=== PATIENT | female | born 1970 | race Caucasian/White ===

== ENCOUNTER 2020-04-29 16:50 | Emergency (ER) | payer MEDICARE, MEDICAID, SELFPAY ==
[2020-04-29] VITALS (54 sets, daily range): BP systolic 97–138; BP diastolic 42–103; PULSE 52–187; RESP 11–37; TEMP 36.6; O2SAT 85–96
--- NOTE | 2020-04-29 16:45 | RT.EKG_ITS ---
APPROVED REPORT Exam: Resting ECG Patient Location: E HR:96 bpm ECG Measurements Heart Rate [address] 209 P 51 QRSd 99 QRS 89 QT 353 T 32 QTc 448 Conclusion Sinus rhythm...normal P axis, V-rate 60- [address] interval...CT >205, V-rate 91-120 Low voltage, extremity leads...all extremity leads <0.5mV
--- NOTE | 2020-04-29 17:18 | DI.CT_ITS ---
EXAM: CT CHEST PE ABD PELVIS W CLINICAL HISTORY: upper abdominal pain, shortness of breath. TECHNIQUE: Imaging Protocol: Axial CT angiography was performed with multi-slice acquisition and m ulti-planar and/or 3D reconstructions. CONTRAST MATERIAL: Intravenous: Omnipaque 350 Contrast volume:100 ml Oral: None COMPARISON: None FINDINGS: CHEST: PULMONARY ARTERIES: There are no intra-arterial filling defects to suggest the presence of acute pulm onary emboli. LUNGS: There is no evidence of pulmonary infarction. Emphysematous changes and mosaic pattern in the lung jacobs. Also atelectasis and mild infiltrates in lung bases. No pleural effusions. MEDIASTINUM: There is no hilar nor mediastinal adenopathy. CARDIAC: There is cardiomegaly. No pericardial effusion. No significant shift of the interventricul ar septum. However, there is some reflux of contrast into the intrahepatic veins evident. Thecalibe r of the thoracic aorta is within normal limits. OSSEOUS: No significant osseous lesions.. ABDOMEN: There is no ascites. LIVER: There are no focal hepatic lesions. GALLBLADDER/BILIARY: Gallbladder surgically absent. CBD diameter is upper normal. Mild prominence o f intrahepatic ducts noted in both attic lobes. PANCREAS: No evidence of pancreatic mass nor dilatation of the pancreatic duct. SPLEEN: Spleen is not enlarged. There are no intrasplenic lesions. Splenic and portal veins are esqueda nt. ADRENALS: There is a 10 x 12 millimeter nodule in the left adrenal gland. A 6 x 6 millimeter nodule is noted in the right adrenal gland KIDNEYS:Right kidney appears unremarkable. There is a nonobstructive calculus in the left kidney whi ch measures approximately 10 x 11 millimeters.. No solid renal masses. ABDOMINAL AORTA: The abdominal aorta is not enlarged. There are multiple small subcentimeter low lym ph nodes in the para-aortic region. ABDOMINAL WALL/GI: Prominent pannus. There is also midline ventral anterior abdominal wall hernia wh ich contains fat and measures 5 cm wide. No bowel obstruction. PELVIS: LYMPH NODES: There are enlarged lymph nodes in both groins, exhibiting fatty hemal. GI: No evidence of appendicitis.No evidence of sigmoid diverticulitis. URINARY BLADDER: There is air seen in the urinary bladder. REPRODUCTIVE: Uterus size is age-appropriate. Ovaries appear symmetrical. There prominent fatty lym ph nodes bilaterally anterior to the iliac arteries in the pelvis. OSSEOUS: No significant osseous lesions. IMPRESSION: 1. No evidence of acute pulmonary emboli nor pulmonary infarction. 2. Cardiomegaly and indirect evidence of right heart insufficiency.No pericardial effusion. 3. Abnormally enlarged inguinal and iliac lymph nodes as well as small retroperitoneal lymphadenopath y. 4. Bilateral adrenal adenomas, larger on the left side (12 millimeters) 5. There is a 10-11 millimeter nonobstructing calculus in left kidney. No other significant renal fi ndings. 6. There is an anterior abdominal wall hernia as described above which contains fat and no bowel loo ps. There is no bowel obstruction. RADIATION DOSE DELIVERED: 2,215.55mGy.cm Total DLP DATA REPOSITORY: All CT scans at this facility are submitted to the National Radiology Data Registry (NRDR) Dose Index Registry (DIR) with the [employer] (A[employer]). RADIATION OPTIMIZATION: All CT scans at this facility use at least one of these dose optimization te chniques: automated exposure control; mA and/or kV adjustment per patient size (includes targeted exa ms where dose is matched to clinical indication); or iterative reconstruction.
--- NOTE | 2020-04-29 17:22 | ED.GENADUL_ITS ---
Discharge Plan Disposition Patient Disposition: [facility] Condition: Serious Discharge Details Clinical Impression: CHF (congestive heart failure), Abdominal pain, Nonsustained paroxysmal supraventricular tachycardia Primary Care Provider: Barbara Irving ED Provider: Flex Rush Home Meds and New Rx's Prescriptions: No Action diltiazem HCl 360 mg Capsule,Extended Release 24hr 360 mg PO DAILY RF: 0 furosemide [Lasix] 80 mg Tablet 80 mg PO DAILY RF: 0 metformin 1,000 mg Tablet 1,000 mg PO BID RF: 0 glimepiride 4 mg Tablet 4 mg PO DAILY RF: 0 gabapentin 600 mg Tablet 1,200 mg PO TID RF: 0 spironolactone 25 mg Tablet 12.5 mg PO DAILY RF: 0 Discharge Data Discharge Date/Time-TO BE ENTERED AT DEPARTURE: 04/30/20 00:30 Medical Decision Making 1727??49-year-old female with history of CHF, prior abdominal hernia, here with severe upper abdominal bandlike pain over the past month and worse over the past 1 week with associated shortness of breath. Patient also with lower extremity edema. Some medication noncompliance. EMS notes patient had intermittent episodes of SVT with RVR 180 bpm in route to emergency department. She was given diltiazem 15 mg IV prior to arrival. Concern for exacerbation of congestive heart failure. Will check BNP. ECG and troponin. Consider acute pulmonary embolism. Plan to obtain CT of the chest. Consider acute intra-abdominal surgical process. Will obtain CT of the abdomen pelvis. Patient obtain outside hospital records from [facility] where patient receives usual care. Patient has severe pain is requesting Dilaudid noting side effects from tramadol and lack of improvement with NSAIDs. Will give dialudid 1mg IV. --Screening ECG was reviewed and interpreted by me: Please see report, sinus rhythm, no STEMI. 1759 --I obtained outside hospital records from [facility] and reviewed them. Prior medical history includes diabetes type 2, COPD, history of hernia repair, depression. Cardiology note notes Zio patch report 10/29/2019 paroxysmal SVT, symptomatic. Echocardiogram 10/06/2018 note EF 50 to 60% with normal wall motion of the left ventricle, right ventricle was dilated and systolic function reduced. Pulmonary artery systolic pressure was noted to be increased greater than or equal to 45 mmHg, inferior vena cava was noted to be dilated and findings consistent for elevated central venous pressure. --Patient had an episode of SVT here noted on monitor. Repeat ECG performed and nondiagnostic. --Labs reviewed and BNP elevated at 755, normal initial troponin, negative Covid. No leukocytosis, normal LFTs. 2013 -- CT the abdomen pelvis was interpreted by radiology: IMPRESSION: 1. Enlarged inguinal, iliac, and retroperitoneal lymph nodes raise concern for bilateral lower extremity infection or inflammation. 2. 12 mm left adrenal adenoma is benign. No further imaging required. 3. 8 mm left renal nonobstructing calculus. 4. Small ventral hernia without evidence of strangulation. CTA of the chest: IMPRESSION: 1. No pulmonary embolism. 2. Right atrial enlargement and evidence of right heart insufficiency. 3. Mild bilateral upper lobe paraseptal emphysema and probable small airways disease. Patient was reassessed and pain improved with Dilaudid. Patient saturating mid 90s on 3 L with no respiratory distress. Will give Lasix 20 mg IV. 2099 -- Plan for hospitalization for diuresis, echo, pain control and reassessment. No beds nor echo capability available at [facility] at this time. I called [facility] to request transfer the patient. Awaiting callback. 2151-- [facility] transfer center notes unlikely ability to transfer given capacity issues. sort supervisor noting [facility] available beds. Will call to request transfer. 2215 -- [facility] notes no cardiology available and no comfortable accepting patient. Patient reassessed: patient was given lasix 20mg IV and without guidance also took her home dose of Lasix 80 mg p.o. and spironolactone 12.5 mg p.o. Patient is now diuresing a large amount and is put out 3 L. Patient has difficulty transitioning from bed to commode and I do worry about her falling. Will place Arizmendi catheter given fall risk and prolonged transport time. 23:20 --patient has been accepted to [facility] Dr. Arguello. [facility] did call back and noted that they do not have bed availability. Medical Records Medical records reviewed: Yes I reviewed the patient's medical records. Lab Data Lab results reviewed: Yes I reviewed the patient's lab results. Labs: Laboratory Tests Range/Units 04/29/20 04/29/20 04/29/20 16:31 16:36 17:47 WBC (4.4-10.8) 10^3/uL 9.44 RBC (3.93-5.22) 10^6/uL 4.08 Hgb (11.2-15.7) g/dL 13.1 Hct (36.0-46.0) % 40.4 MCV (80-95) fL 99.0 H MCH (27.0-33.0) pg 32.1 MCHC (32.0-36.0) % 32.4 RDW (11.7-14.6) % 13.2 Plt Count (130-400) 10^3/uL 282 MPV (8.0-11.0) fL 9.8 Immature Gran % 0.3 Neutrophils % 79.3 Lymphocytes % 9.6 Monocytes % 5.5 Eosinophils % 5.1 Basophils % 0.2 Nucleated RBC % % 0 Absolute Neutrophils (1.2-6.7) 10^3/uL 7.48 H Absolute Lymphocytes (1.2-3.4) 10^3/uL 0.91 L Absolute Monocytes (0.1-0.8) 10^3/uL 0.52 Absolute Eosinophils (0.0-0.7) 10^3/uL 0.48 Absolute Basophils (0.0-0.2) 10^3/uL 0.02 Sodium (136-145) mmol/L 142 Potassium (3.5-5.1) mmol/L 3.3 L Chloride (98-107) mmol/L 103 Carbon Dioxide (21.0-32.0) mmol/L 26.3 Anion Gap (3-11) mmol/L 12.7 H BUN (7-18) mg/dL 16 Creatinine (0.55-1.02) mg/dL 1.0 Estimated GFR/1.73 m2 (mL/min/1.73m2) 59.18 Glucose (74-106) mg/dL 135 H Calcium (8.5-10.1) mg/dL 9.7 Total Bilirubin (0.2-1.0) mg/dL 0.6 AST (15-37) U/L 8 L ALT (14-59) U/L 11 L Alkaline Phosphatase (46-116) U/L 89 Troponin I (<0.06) ng/mL < 0.05 NT-Pro-B Natriuret Pep (<300) pg/mL 755 H Total Protein (6.4-8.2) g/dL 8.4 H Albumin (3.4-5.0) g/dL 3.1 L COVID-19 Source Nasopharynx SARS-CoV-2 (PCR) (Negative) Negative Influenza Type A (PCR) (Negative) Negative Influenza Type B (PCR) (Negative) Negative RSV (PCR) (Negative) Negative HPI General Mode of arrival: EMS . Date/Time Provider Initiated Documentation: 04/29/20 16:56 . Limitations to Documentation: no limitations . Information obtained by: patient and EMS . HPI Narrative: 39-year-old female with history of prior abdominal hernia, CHF, on home O2, here with chief complaint of abdominal pain. Patient notes bandlike abdominal pain radiating from her back through her abdomen over the past 1 month, worse over the past 1 week, waxes and wanes, severe at times, worse with certain positions. She has associated shortness of breath that she attributes to not being able to take a deep breath. She also notes associated lower extremity edema over the past week with no calf pain. No fever or cough. No chest pain. Patient has intermittent noncompliance with her diuretic. She also notes intermittent episodes of flushing and dizziness. Related Data Home Medications Medication Instructions Recorded Confirmed diltiazem HCl 360 mg PO DAILY 04/29/20 04/29/20 furosemide [Lasix] 80 mg PO DAILY 04/29/20 04/29/20 gabapentin 1,200 mg PO TID 04/29/20 04/29/20 glimepiride 4 mg PO DAILY 04/29/20 04/29/20 metformin 1,000 mg PO BID 04/29/20 04/29/20 spironolactone 12.5 mg PO DAILY 04/29/20 04/29/20 Allergies Allergy/AdvReac Type Severity Reaction Status Date / Time tramadol AdvReac Intermediate vomitting Unverified 04/29/20 17:34 Review of Systems All systems reviewed & are unremarkable except as noted in HPI and below Constitutional Constitutional: Denies fever(s) Cardiovascular Cardiovascular: Denies chest pain Respiratory Respiratory: Reports as per HPI Gastrointestinal Gastrointestinal: Reports as per HPI and Denies vomiting [facility] Medical History (Updated 04/29/20 @ 23:21 by Flex Rush MD) Abdominal hernia CHF (congestive heart failure) Social History Smoking/Tobacco Use Status: Former Tobacco Use Smoking risk assessment performed?: Yes Alcohol Intake: never Drug use: Never Details: CBD Oil for pain Do you feel safe at home: Yes Do you feel safe in your relationship?: Yes Exam Const General: cooperative Nutritional Appearance: obese Orientation: alert and awake Limitations: mental status not altered HENRI Head: normocephalic and atraumatic Mouth: moist mucous membranes Eyes Conjunctivae: normal conjunctivae Sclera: normal sclerae Neck Neck: trachea midline and supple Resp Auscultation: clear to auscultation bilaterally, no rales, no rhonchi and no wheezes Cardio Rate: tachycardic Rhythm: regular rhythm Heart Sounds: no gallops, no murmurs and no rubs GI Palpation: soft, not firm, no guarding, no masses, not rigid and tender (Diffuse, worse upper abdomen bilateral) Auscultation: normal bowel sounds Skin General skin exam: no rashes or lesions noted Neuro General: patient alert, patient awake, patient oriented x3 and tone normal Extrem General: no calf tenderness bilaterally and edema Laterality: bilateral Right lower extremity: lower leg Details: pitting edema Details: 3+ Left lower extremity: lower leg Details: pitting edema Details: 3+ and non- pitting edema Other: Inner groin examined with female nurse accounting instructor present and bilateral chronic cystic/ulcerative lesions with no cellulitis or induration (patient notes chronic times years and no recent acute inflammation) Psych Appearance: grossly normal Mental Status: mental status grossly normal
[2020-04-29 17:51] LABS: Source Nasopharynx
[2020-04-29] MEDS: HYDROmorphone 2 MG/ML VIAL 1 MG IVP (17:51)
[2020-04-29 17:56] LABS: Abs Immature Grans 0.03 10^3/uL (0.0-0.06); Absolute Basophil Count 0.02 10^3/uL (0.0-0.2); Absolute Eosinophil Count 0.48 10^3/uL (0.0-0.7); Absolute Lymphocyte Count 0.91 10^3/uL (1.2-3.4); Absolute Monocyte Count 0.52 10^3/uL (0.1-0.8); Absolute Neutrophil Count 7.48 10^3/uL (1.2-6.7); Basophils % 0.2; Eosinophils % 5.1; HCT 40.4 % (36.0-46.0); HGB 13.1 g/dL (11.2-15.7); Immature Grans % 0.3; Lymphocytes % 9.6; MCH 32.1 pg (27.0-33.0); MCHC 32.4 % (32.0-36.0); MPV 9.8 fL (8.0-11.0); Monocytes % 5.5; Neutrophils % 79.3; Nucleated RBC 0 %; Platelet Count 282 10^3/uL (130-400); RBC 4.08 10^6/uL (3.93-5.22); RDW 13.2 % (11.7-14.6); RDW-SD 47.5 fL; WBC 9.44 10^3/uL (4.4-10.8)
[2020-04-29 18:15] LABS: ALT 11 U/L (14-59); AST 8 U/L (15-37); Albumin 3.1 g/dL (3.4-5.0); Alkaline Phosphatase 89 U/L (46-116); Anion Gap 12.7 mmol/L (3-11); BUN 16 mg/dL (7-18); Bilirubin, Total 0.6 mg/dL (0.2-1.0); CO2 26.3 mmol/L (21.0-32.0); Calcium 9.7 mg/dL (8.5-10.1); Chloride 103 mmol/L (98-107); Estimated GFR 59.18 (mL/min/1.73m2); Glucose 135 mg/dL (74-106); NT-proBNP 755 pg/mL (<300); Potassium 3.3 mmol/L (3.5-5.1); Sodium 142 mmol/L (136-145); Total Protein 8.4 g/dL (6.4-8.2)
[2020-04-29 18:18] LABS: Troponin I < 0.05 ng/mL (<0.06)
[2020-04-29 18:33] LABS: COVID-19 PCR Negative (Negative); Influenza A PCR Negative (Negative); Influenza B PCR Negative (Negative); RSV PCR Negative (Negative)
--- NOTE | 2020-04-29 19:15 | RT.EKG_ITS ---
APPROVED REPORT Exam: Resting ECG Patient Location: E HR:186 bpm ECG Measurements Heart Rate 186 AXIS AZ 56 P 0 QRSd 95 QRS 101 QT 279 T -43 QTc 493 Conclusion Supraventricular tachycardia...V-rate>(220-age), QRSd<120
[2020-04-29] MEDS: Normal Saline - Diluent 50 ML VIAL IV (19:25)
[2020-04-29] MEDS: Omnipaque 350 MG/ML 100 ML BTL IJ (19:25)
[2020-04-29] MEDS: Normal Saline Flush 10 ML SYR IVP (19:26)
--- NOTE | 2020-04-29 19:55 | DI.VRAD_ITS ---
PROCEDURE INFORMATION: Exam: CT Angiography Chest With Contrast Exam date and time: 04/29/2020 5:38 PM Age: 49 years old Clinical indication: Shortness of breath; Other: Upper abdominal; Abdominal pain; Localized; Patient HX: Copd. Chf, known hernia; Additional info: Upper abdominal pain, bandlike abd pain to back, TECHNIQUE: Imaging protocol: Computed tomographic angiography of the chest with contrast. 3D rendering (Not supervised by radiologist): MIP and/or 3D reconstructed images were created by the technologist. Radiation optimization: All CT scans at this facility use at least one of these dose optimization techniques: automated exposure control; mA and/or kV adjustment per patient size (includes targeted exams where dose is matched to clinical indication); or iterative reconstruction. Contrast material: OMNIPAQUE 350; Contrast volume: 100 ml; Contrast route: INTRAVENOUS (IV); COMPARISON: No relevant prior studies available. FINDINGS: Pulmonary arteries: Normal. No pulmonary emboli. Aorta: Unremarkable. No aortic aneurysm. No aortic dissection. Lungs: Mild paraseptal predominant emphysema, primarily in the upper lobes. Linear parenchymal densities in the lung bases likely represent scarring. Mosaic attenuation of pulmonary parenchyma suggests an element of small airways disease. Pleural spaces: Unremarkable. No pneumothorax. No pleural effusion. Heart: Mild right atrial enlargement. No pericardial effusion, dilatation of great vessels, or enlargement of other cardiac chambers. Lymph nodes: Unremarkable. No enlarged lymph nodes. Liver: Intrahepatic contrast reflux. Bones/joints: Mild to moderate upper thoracic dextroscoliosis. Mild multilevel midthoracic endplate degenerative spurring. No significant spondylolisthesis. No acute fracture. Soft tissues: Unremarkable. IMPRESSION: 1. No pulmonary embolism. 2. Right atrial enlargement and evidence of right heart insufficiency. 3. Mild bilateral upper lobe paraseptal emphysema and probable small airways disease. PROCEDURE INFORMATION: Exam: CT Angiography Abdomen With Contrast Exam date and time: 04/29/2020 5:38 PM Age: 49 years old Clinical indication: Shortness of breath; Other: Upper abdominal; Abdominal pain; Localized; Patient HX: Copd. Chf, known hernia; Additional info: Upper abdominal pain, bandlike abd pain to back, TECHNIQUE: Imaging protocol: Computed tomographic angiography images of the abdomen with intravenous contrast material. 3D rendering (Not supervised by radiologist): MIP and/or 3D reconstructed images were created by the technologist. Radiation optimization: All CT scans at this facility use at least one of these dose optimization techniques: automated exposure control; mA and/or kV adjustment per patient size (includes targeted exams where dose is matched to clinical indication); or iterative reconstruction. Contrast material: OMNIPAQUE 350; Contrast volume: 100 ml; Contrast route: INTRAVENOUS (IV); COMPARISON: No relevant prior studies available. FINDINGS: Aorta: Minimal calcified atherosclerotic disease. No aneurysm. Celiac trunk and mesenteric arteries: Hepatic artery arises from the proximal SMA. No significant stenosis. Renal arteries: No occlusion or significant stenosis. Liver: Normal. No mass. Gallbladder and bile ducts: Prior cholecystectomy. No biliary duct dilatation. Pancreas: Mild fatty atrophy of the pancreas. Spleen: Normal. No splenomegaly. Adrenals: 12 mm left adrenal adenoma. Kidneys and ureters: 8 mm left renal nonobstructing calculus. Kidneys and ureters are otherwise unremarkable. Stomach and bowel: Unremarkable. No obstruction. No mucosal thickening. Lymph nodes: Prominent bilateral inguinal, iliac, and retroperitoneal lymph nodes with fatty hemal are likely related to infection/inflammation of bilateral lower extremities. Intraperitoneal space: Unremarkable. No free air. No significant fluid collection. Bones/joints: Moderate L5-S1 degenerative disc disease. No acute fracture or focal suspicious osseous lesion. Soft tissues: 24 mm fat filled ventral hernia. IMPRESSION: 1. Enlarged inguinal, iliac, and retroperitoneal lymph nodes raise concern for bilateral lower extremity infection or inflammation. 2. 12 mm left adrenal adenoma is benign. No further imaging required. 3. 8 mm left renal nonobstructing calculus. 4. Small ventral hernia without evidence of strangulation. Dictated and Authenticated by: Saji Ovalles MD. Ordering:TIANNA Mccord MD
[2020-04-29] MEDS: Furosemide 20 MG/2 ML VIAL IVP (21:34)
[2020-04-29 21:52] LABS: Lipase 67 U/L (73-393)
[2020-04-29 22:54] LABS: Troponin I < 0.05 ng/mL (<0.06)
--- NOTE | 2020-04-29 23:20 | NUR.NOTE ---
Nursing Note:Patient accepted at [facility]
--- NOTE | 2020-04-29 23:30 | NUR.NOTE ---
Nursing Note: Patient asking for her PM dose of Gabapentin [address] Rush. Verbal order for patient to take her own medication for this dose. Patient also asking for muscle relaxer also. No orders received.
[2020-04-30] VITALS: PULSE 100; RESP 17; O2SAT 95
[2020-04-30 00:01] VITALS: BP 118/69; PULSE 96; PULSE 98; RESP 19; O2SAT 94
[2020-04-30 00:02] VITALS: PULSE 96; RESP 16; O2SAT 95
[2020-04-30 00:10] VITALS: PULSE 91; RESP 20; O2SAT 93
[2020-04-30 00:20] VITALS: PULSE 89; RESP 18; O2SAT 93
== END 2020-04-30 00:30 | disposition short-term general hospital (02) ==
PROVIDERS: Emergency Provider Student in an Organized Health Care Education/Training Program; PCP Family Medicine
DX: I47.9 Paroxysmal tachycardia, unspecified (principal); I50.9 Heart failure, unspecified; R10.10 Upper abdominal pain, unspecified; Z20.822 Contact with and (suspected) exposure to COVID-19; E11.9 Type 2 diabetes mellitus without complications; Z79.84 Long term (current) use of oral hypoglycemic drugs; J44.9 Chronic obstructive pulmonary disease, unspecified; Z87.891 Personal history of nicotine dependence; Z74.09 Other reduced mobility
CPT/HCPCS: 36415; 51702; 71275; 74177; 80053; 83690; 93005; 96374; 96375; 99285; 83880; 84484; 85025; 93010; J1941; J3490